=== PATIENT | female | born 1960 | race Caucasian/White ===

== ENCOUNTER 2021-10-01 10:20 | Outpatient (CLI) | payer MEDICARE, MEDICAID, SELFPAY ==
[2021-10-01 16:45] LABS: Free T4 Free Thyroxine 1.64 ng/mL (0.78-2.19); Vitamin D 25 Hydroxy 79.6 ng/mL
== END 2021-10-01 10:21 | disposition home or self-care (01) ==
LOC: ANHWCLAB 10:22
PROVIDERS: Referring Provider Internal Medicine Endocrinology, Diabetes & Metabolism; Visit Provider Internal Medicine Endocrinology, Diabetes & Metabolism
DX: E03.9 Hypothyroidism, unspecified (principal); M85.80 Other specified disorders of bone density and structure, unspecified site; R79.89 Other specified abnormal findings of blood chemistry
CPT/HCPCS: 36415; 82306; 84439; 84443